=== PATIENT | male | born 1990 | race Caucasian/White ===

== ENCOUNTER 2017-04-11 13:20 | Emergency (ER) | payer MEDICARE, OTHER ==
[~2017-04-11 13:20] MED LIST: ABIL20TA5 PO; CLON0.3T PO; MELA5 PO; TRIA.1%T TOPICAL
[2017-04-11 13:27] VITALS: BP 148/78; PULSE 94; RESP 20; TEMP 98.9; O2SAT 100
[2017-04-11] MEDS ORDERED: CLINDAMYCIN 150 MG CAP PO ONE (14:30)
[2017-04-11] MEDS ORDERED: CLIN300C5 PO (14:34)
--- NOTE | 2017-04-11 14:34 | PD ---
HPI Chief Complaint: Facial Pain or Swelling Time Seen by Provider: 14:25 Travel History International Travel<30 days: No Contact w/Intl Traveler<30days: No Traveled to known affect area: No History of Present Illness HPI This 26-year-old male is complaining of swelling on the right side of his jaw. He went to the dentist and was given prescription for amoxicillin and recommendation to come here for possible IV antibiotic. Patient has a carious tooth at this site and will follow up with the dentist. PFSH Past Medical History ADHD: No Cancer: No Diabetes: No Diminished Hearing: No Psychiatric: Yes Immunizations Current: Yes Migraines: No Schizophrenia: Yes Seizures: No Thyroid Disease: No Ulcer: No Tetanus Vaccination: Unknown Influenza Vaccination: Yes ?: Not Past Surgical History Appendectomy: No Cholecystectomy: No Social History Alcohol Use: No Tobacco Use: No Substance Use: No Allergies-Medications (Allergen,Severity, Reaction): Coded Allergies: divalproex sodium (Verified Allergy, Severe, 04/11/17) Reported Meds & Prescriptions Reported Meds & Active Scripts Active Clonidine (Clonidine HCl) 0.3 Mg Tab 0.3 Mg PO HS Abilify (Aripiprazole) 20 Mg Tab 20 Mg PO BID Reported Melatonin 5 Mg Tab 5 Mg PO HS Review of Systems General / Constitutional: No: Fever, Chills HENT: Positive: Dental Difficulties, No: Sore Throat Cardiovascular: No: Chest Pain or Discomfort Respiratory: No: Cough Physical Exam Narrative GENERAL: Well-developed male SKIN: Focused skin assessment warm/dry. HEAD: Atraumatic. Normocephalic. EYES: Pupils equal and round. No scleral icterus. No injection or drainage. ENT: No nasal bleeding or discharge. Mucous membranes pink and moist. Right side of the jaw is swollen. The tooth that the right mandibular area is very carious NECK: Trachea midline. No JVD. Airway is intact CARDIOVASCULAR: Regular rate and rhythm. No murmur appreciated. MUSCULOSKELETAL: No obvious deformities. No clubbing. No cyanosis. No edema. NEUROLOGICAL: Awake and alert. No obvious cranial nerve deficits. Motor grossly within normal limits. Normal speech. PSYCHIATRIC: Appropriate mood and affect; insight and judgment normal. Data Data Last Documented VS Vital Signs Date Time Temp Pulse Resp B/P (MAP) Pulse Ox O2 Delivery O2 Flow Rate FiO2 04/11/17 13:27 98.9 94 20 148/78 (101) 100 Orders Orders Clindamycin (Cleocin) (04/11/17 14:30) MDM Medical Decision Making Medical Screen Exam Complete: Yes Emergency Medical Condition: Yes Medical Record Reviewed: Yes Differential Diagnosis Differential includes dental abscess Narrative Course A shunt has a dental abscess and I think would be better off on clindamycin and amoxicillin. Diagnosis Primary Impression: Dental abscess Scripts Clindamycin (Clindamycin) 300 Mg Cap 300 MG PO TID for Infection, #30 CAP 0 Refills Prov: Homar Lee MD 04/11/17 Disposition: 01 DISCHARGE HOME Condition: Stable Homar Lee MD Apr 11, 2017 14:34
== END 2017-04-11 15:01 | disposition home or self-care (01) ==
LOC: PHED 13:20
DX: K04.7 Periapical abscess without sinus (principal)
CPT/HCPCS: 99283